=== PATIENT | female | born 1945 | race Caucasian/White ===

== ENCOUNTER 2016-12-25 23:03 | Inpatient (IN) | payer MEDICARE ==
[2016-12-25] MEDS ORDERED: HEPARIN SODIUM,PORCINE/D5W PMX 25,000 UNIT in DEXTROSE/WATER 1 500ML.BAG IV SCH (23:45)
[2016-12-25] MEDS ORDERED: NITROGLYCERIN SL TABS 0.4 MG TAB SUBLINGUAL PRN (23:51)
[2016-12-25 23:53] LABS: Basophils # (A) 0.1 k/uL (0-0.2); Basophils % (A) 1 %; CHCM 34.5; Eosinophils % (A) 1 %; HCT 37.6 % (34.0-46.0); HDW 2.19; HGB 12.7 gm/dL (11.4-16.0); Luc # (Auto) 0.18; Luc % (Auto) 3; Lymphocytes # (A) 1.3 k/uL (1.0-4.8); Lymphocytes % (A) 21 %; MCH 30.3 pg (25.0-35.0); MCHC 33.7 g/dL (31.0-37.0); Mean Platelet Volume 7.3; Monocytes # (A) 0.5 k/uL (0-1.0); Monocytes % (A) 8 %; Neutrophils # (A) 4.1 k/uL (1.3-7.7); Neutrophils % (A) 66 %; RBC 4.18 m/uL (3.80-5.40); RDW 13.5 % (11.5-15.5); WBC 6.1 k/uL (3.8-10.6); WBC (Perox) 6.27
--- NOTE | 2016-12-26 00:03 | ED ---
Chest Pain HPI - General Chief Complaint: Chest Pain Stated Complaint: Cath-Trans from [facility] Time Seen by Provider: 12/25/16 23:05 Source: patient, EMS Mode of arrival: EMS Limitations: no limitations - History of Present Illness Initial Comments: This patient is a 70-year-old woman transferred here from [facility] to be admitted and have cardiology consultation. The patient had gone there for an episode of chest pain. She states that the symptoms came on around 6:30 after she had eaten. She states she was not exerting herself at this time. She indicates the pain was substernal, heavy feeling, moderate intensity. She states that she felt somewhat weak and just unwell. The symptoms resolved just prior to her arriving at the other hospital. She states she has not had any recurrence of symptoms and feels okay now. The patient denies diaphoresis, dyspnea, nausea and vomiting, palpitations, lightheadedness or syncope. He does give history of patent ductus appear in 1968. MD Complaint: chest pain Onset/Timin -: hour(s) Onset: during rest Pain Location: substernal Pain Radiation: none Severity: moderate Quality: heaviness Consistency: now resolved Improves With: nothing Worsens With: nothing Anginal Symptoms: diaphoresis Treatments Prior to Arrival: none - Related Data Home Medications Medication Instructions Recorded Confirmed Brimonidine Tartrate [Alphagan P 1 drop BOTH EYES BID 12/25/16 12/25/16 0.2% Oph Soln] Cholecalciferol [Vitamin D3] 1,000 unit PO DAILY 12/25/16 12/25/16 Latanoprost [Xalatan 0.005%] 1 drop BOTH EYES HS 12/25/16 12/25/16 Lisinopril [Zestril] 10 mg PO DAILY 12/25/16 12/25/16 Allergies Allergy/AdvReac Type Severity Reaction Status Date / Time Sulfa (Sulfonamide Allergy Rash/Hives Verified 12/25/16 23:26 Antibiotics) Penicillins AdvReac Nausea & Verified 12/25/16 23:26 Vomiting Review of Systems ROS Statement: Those systems with pertinent positive or pertinent negative responses have been documented in the HPI. ROS Other: All systems not noted in ROS Statement are negative. Constitutional: Denies: fever, chills, weakness ENT: Denies: throat pain Respiratory: Denies: cough, dyspnea, hemoptysis Cardiovascular: Reports: as per HPI, chest pain. Denies: palpitations, dyspnea on exertion, orthopnea, edema, syncope Gastrointestinal: Denies: abdominal pain, vomiting Genitourinary: Denies: dysuria, hematuria Musculoskeletal: Denies: back pain Skin: Denies: rash Neurological: Denies: headache, weakness, numbness EKG Findings - EKG Results: EKG: interpreted by ERMD, sinus rhythm (Rate approximately 83 bpm), normal axis , normal QRS - ND, Pacemaker, Normal: Myocardial infarction: inferior ND (old age indeterminate) Past Medical History Past Medical History: Hypertension History of Any Multi-Drug Resistant Organisms: None Reported Additional Past Surgical History / Comment(s): appanductious 67 Past Psychological History: Anxiety, Depression Smoking Status: Never smoker Past Alcohol Use History: Occasional Past Drug Use History: None Reported General Exam Limitations: no limitations General appearance: alert, in no apparent distress Head exam: Present: atraumatic, normocephalic Eye exam: Present: normal appearance ENT exam: Present: normal oropharynx, mucous membranes moist Neck exam: Present: normal inspection Respiratory exam: Present: normal lung sounds bilaterally. Absent: respiratory distress, wheezes, rales, rhonchi, stridor Cardiovascular Exam: Present: regular rate, normal rhythm, systolic murmur ( Grade 1/6 systolic ejection murmur). Absent: diastolic murmur, rubs, gallop GI/Abdominal exam: Present: soft. Absent: distended, tenderness, guarding, rebound Extremities exam: Present: normal inspection, normal capillary refill. Absent: pedal edema, calf tenderness Back exam: Present: normal inspection. Absent: CVA tenderness (R), CVA tenderness (L) Neurological exam: Present: alert Skin exam: Present: warm, dry, intact, normal color. Absent: rash Course Vital Signs 12/25/16 23:13 Temperature 98.8 F Pulse Rate 90 Respiratory 16 Rate Blood Pressure 160/72 O2 Sat by Pulse 97 Oximetry Chest Pain [facility] Patient is a 70-year-old woman transferred from [facility], for an episode of chest pain. She has been symptom-free since her to arriving at the other hospital. She arrives on a heparin drip. Patient be admitted under the hospitalist and have cardiology consultation. I did discuss the case with Dr. Davila. Disposition Clinical Impression: Chest pain Disposition: ADMITTED IP TO THIS HOSP Condition: Good
[2016-12-26 00:04] LABS: ALT 151 U/L (9-52); AST 278 U/L (14-36); Alkaline Phosphatase 140 U/L (38-126); Amylase 74 U/L (30-110); Anion Gap 10 mmol/L; Blood Urea Nitrogen 19 mg/dL (7-17); Calcium 9.5 mg/dL (8.4-10.2); Carbon Dioxide 24 mmol/L (22-30); Chloride 103 mmol/L (98-107); Glucose 110 mg/dL (74-99); Magnesium 2.1 mg/dL (1.6-2.3); Non-African American GFR(MDRD) >60 (>60 ml/min/1.73 sqM); Potassium 4.4 mmol/L (3.5-5.1); Sodium 137 mmol/L (137-145); Total Bilirubin 0.7 mg/dL (0.2-1.3); Total Protein 7.1 g/dL (6.3-8.2)
[2016-12-26 00:13] LABS: Creatine Kinase MB 0.6 ng/mL (0.0-2.4)
[2016-12-26 00:24] LABS: Troponin I 0.052 ng/mL (0.000-0.034)
[2016-12-26 02:00] VITALS: BMI 23.9
[2016-12-26 06:23] LABS: Creatine Kinase MB 0.8 ng/mL (0.0-2.4)
[2016-12-26 06:27] LABS: Troponin I 0.052 ng/mL (0.000-0.034)
[2016-12-26 06:39] LABS: Cholesterol 275 mg/dL (<200); HDL Cholesterol 105 mg/dL (40-60); Triglycerides 57 mg/dL (<150)
[2016-12-26] MEDS: BRIMONIDINE TARTRATE 0.2% DROPS 5 ML BTL BOTH EYES SCH ×2 (08:14→19:53)
--- NOTE | 2016-12-26 08:15 | P.CRDCN ---
History of Present Illness Consult date: 12/26/16 Chief complaint: Chest pain History of present illness: This is a pleasant 71-year-old female patient with a past medical history significant for hypertension as well as history of surgical repair of PDA presented initially to [facility] and then she was transferred to [facility]. The patient was in her usual state of health until yesterday when she went to eat dinner with her and once she was back at home she started experiencing discomfort across the chest associated with dizziness and lightheadedness. The EKG showed sinus rhythm with non-specific changes in the inferior leads. The cardiac enzymes were checked and came in to be abnormal. The patient was ruled in for acute coronary event. I recommended proceeding with heart catheterization. I am concerned about severity underlying CAD. Past Medical History Past Medical History: Hypertension History of Any Multi-Drug Resistant Organisms: None Reported Past Surgical History: Tonsillectomy Additional Past Surgical History / Comment(s): appanductious 67 Past Anesthesia/Blood Transfusion Reactions: No Reported Reaction Past Psychological History: Anxiety, Depression Smoking Status: Former smoker Past Alcohol Use History: Occasional Past Drug Use History: None Reported Medications and Allergies Home Medications Medication Instructions Recorded Confirmed Type Brimonidine Tartrate [Alphagan P 1 drop BOTH EYES BID 12/25/16 12/25/16 History 0.2% Ophth Soln] Cholecalciferol [Vitamin D3] 1,000 unit PO DAILY 12/25/16 12/25/16 History Latanoprost [Xalatan 0.005%] 1 drop BOTH EYES HS 12/25/16 12/25/16 History Lisinopril [Zestril] 10 mg PO DAILY 12/25/16 12/25/16 History Allergies Allergy/AdvReac Type Severity Reaction Status Date / Time Sulfa (Sulfonamide Allergy Rash/Hives Verified 12/25/16 23:26 Antibiotics) Penicillins AdvReac Nausea & Verified 12/25/16 23:26 Vomiting Physical Exam Vitals: Vital Signs Temp Pulse Pulse Resp BP BP Pulse Ox 12/26/16 07:34 97.2 F L 73 16 121/63 95 12/26/16 04:00 16 12/26/16 03:53 98.6 F 74 16 119/57 95 12/26/16 02:00 18 12/26/16 01:45 98.7 F 79 18 142/66 96 12/26/16 01:08 84 16 136/84 97 Intake and Output 12/25/16 12/26/16 12/26/16 22:59 06:59 14:59 Other: Voiding Method Toilet Weight 61.235 kg - Constitutional General appearance: no acute distress - Respiratory Respiratory: bilateral: CTA - Cardiovascular Rhythm: regular Heart sounds: normal: S1, S2 Results 12/25/16 23:26 12/25/16 23:26 Cardiac Enzymes 12/26/16 Range/Units 05:31 CK-MB (CK-2) 0.8 (0.0-2.4) ng/mL Troponin I 0.052 H* (0.000-0.034) ng/mL Coagulation 12/26/16 Range/Units 06:43 APTT 51.7 H (22.0-30.0) sec Lipids 12/26/16 Range/Units 05:31 Triglycerides 57 (<150) mg/dL Cholesterol 275 H (<200) mg/dL HDL Cholesterol 105 H (40-60) mg/dL Current Medications Generic Name Dose Route Start Last Admin Trade Name Freq PRN Reason Stop Dose Admin Aspirin 325 mg 12/26/16 09:00 Aspirin PO DAILY [facility] Brimonidine Tartrate 1 drops 12/26/16 09:00 Alphagan P 0.2% Ophth Soln BOTH EYES BID [facility] Cholecalciferol 1,000 unit 12/26/16 09:00 Vitamin D3 PO DAILY [facility] Heparin Sodium/Dextrose 25,000 500 mls @ 14.69 mls/hr 12/25/16 23:45 01:08 unit/ IV Solution IV 12 units/kg/hr .Q24H KEYONNA 14.7 mls/hr Protocol Administration 12 UNITS/KG/HR Latanoprost 1 drops 12/26/16 21:00 Xalatan 0.005% BOTH EYES HS [facility] Lisinopril 10 mg 12/26/16 09:00 Zestril PO DAILY [facility] Nitroglycerin 0.4 mg 12/25/16 23:51 Nitrostat SUBLINGUAL Q5M PRN Chest Pain Intake and Output 12/25/16 12/26/16 12/26/16 22:59 06:59 14:59 Other: Voiding Method Toilet Weight 61.235 kg Assessment and Plan Plan: Assessment Acute non-STEMI Hypertension Plan Proceed with heart catheterization Follow-up with the patient
[2016-12-26] MEDS ORDERED: ALPRAZolam 0.25 MG TAB PO PRN (08:17)
[2016-12-26] MEDS ORDERED: SODIUM CHLORIDE 0.9% 1,000 ML in EMPTY BAG 1 BAG IV ONE (08:17)
[2016-12-26] MEDS ORDERED: ASPIRIN 325 MG TAB PO STA (08:17)
[2016-12-26] MEDS ORDERED: ALPRAZolam 0.5 MG TAB PO PRN (08:17)
[2016-12-26] MEDS ORDERED: ATORVASTATIN 80 MG TAB PO STA (08:17)
[2016-12-26] MEDS ORDERED: NITROGLYCERIN SL TABS 0.4 MG TAB SUBLINGUAL PRN (08:17)
[2016-12-26] MEDS ORDERED: LISINOPRIL 10 MG TAB PO SCH (09:00)
[2016-12-26] MEDS ORDERED: ASPIRIN 325 MG TAB PO SCH (09:00)
[2016-12-26] MEDS: CHOLECALCIFEROL 1,000 UNIT TAB PO SCH (09:08)
[2016-12-26 12:46] LABS: Creatine Kinase MB 0.8 ng/mL (0.0-2.4); Troponin I 0.025 ng/mL (0.000-0.034)
[2016-12-26] MEDS ORDERED: HEPARIN SODIUM 1,000 UNIT/ML VIAL ONE (15:20)
[2016-12-26] MEDS ORDERED: LIDOCAINE 2% INJ 20 MG/ML (20 ML MDV) ONE (15:20)
[2016-12-26] MEDS ORDERED: MIDAZOLAM 2 MG/2 ML VIAL ONE (15:20)
[2016-12-26] MEDS ORDERED: diphenhydrAMINE 50 MG/ML 1 ML VIAL ONE (15:20)
[2016-12-26] MEDS ORDERED: VERAPAMIL 2.5 MG/ML 2 ML AMP ONE (15:21)
[2016-12-26] MEDS ORDERED: SODIUM CHLORIDE 0.9% 1,000 ML IV ONE (15:29)
[2016-12-26] MEDS ORDERED: diphenhydrAMINE 50 MG/ML 1 ML VIAL IVP ONE (15:39)
[2016-12-26] MEDS ORDERED: MIDAZOLAM 2 MG/2 ML VIAL IV ONE (15:39)
[2016-12-26] MEDS ORDERED: LIDOCAINE 2% INJ 20 MG/ML SQ ONE (15:40)
[2016-12-26] MEDS: VERAPAMIL SYRINGE (5 MG/10 ML) INTRAARTER ONE ×2 (15:43→15:56)
[2016-12-26] MEDS ORDERED: IOHEXOL 350 MG/ML 125ML BOTTLE INJ ONE (15:56)
[2016-12-26] MEDS ORDERED: RX INFO: IV CONTRAST WAS GIVEN 1 EACH MISC MISCELLANE PRN (16:08)
[2016-12-26] MEDS ORDERED: SODIUM CHLORIDE 0.9% 1,000 ML IV SCH (16:15)
[2016-12-26] MEDS: PANTOPRAZOLE 40 MG/10 ML VIAL IVP SCH (17:21)
--- NOTE | 2016-12-26 18:19 | HP ---
DATE OF ADMISSION: Patient is a very pleasant 71-year-old female who was transferred from [facility], where she presented with chest pain after eating dinner with her . It appeared like she had some gas and also sharp in nature, non-radiating across the chest area ( ) dizziness and lightheadedness. Denied any shortness of breath. Patient had negative troponins in [facility]. Here patient has minimally elevated troponins of 0.052, which remained stable, and then they started coming down again. Patient had some nonspecific ST-T wave changes in the inferior leads, because of which Cardiology evaluated the patient and is taking her for cardiac catheterization. Patient does have significant alcohol abuse history. Patient apparently drinks beers every day and patient does have alcoholic hepatitis with elevated liver enzymes, AST and ALT ratio consistent with alcoholic hepatitis. Patient although denies any previous alcohol withdrawal symptoms ( ) does not believe patient will have withdrawals, but will watch for withdrawals here. REVIEW OF SYSTEMS: CONSTITUTIONAL: No fever, no malaise, no fatigue. HEENT: No recent visual problems or hearing problems. Denied any sore throat. CARDIOVASCULAR: As described in HPI. PULMONARY: No shortness of breath, no cough, no hemoptysis. GASTROINTESTINAL: As described in HPI. NEUROLOGICAL: No headaches, no weakness, no numbness. HEMATOLOGICAL: Denies any bleeding or petechiae. GENITOURINARY: Denies any burning micturition, frequency, or urgency. MUSCULOSKELETAL/RHEUMATOLOGICAL: Denies any joint pain, swelling, or any muscle pain. ENDOCRINE: Denies any polyuria or polydipsia. The rest of the 14 point review of systems is negative. Past medical history is significant for: 1. Hypertension. 2. Anxiety. 3. Depression. SOCIAL HISTORY: Former smoker. Alcohol abuse history, as mentioned above. Denied any drug abuse. Home medications include: 1. Brimonidine. 2. Cholecalciferol. 3. Latanoprost. 4. Lisinopril. ALLERGIES: SULFA DRUGS and PENICILLINS. PHYSICAL EXAMINATION: VITAL SIGNS: Temperature 98.0, pulse of 85, respiratory rate of 16, blood pressure 162/70. Saturating at 96% on room air. GENERAL: The patient is alert and oriented x3, not in any acute distress. Well developed, well nourished. HEENT: Pupils are round and equally reacting to light. EOMI. No scleral icterus. No conjunctival pallor. Normocephalic, atraumatic. No pharyngeal erythema. No thyromegaly. CARDIOVASCULAR: S1 and S2 present. No murmurs, rubs, or gallops. PULMONARY: Chest is clear to auscultation, no wheezing or crackles. ABDOMEN: Soft, nontender, nondistended, normoactive bowel sounds. No palpable organomegaly. MUSCULOSKELETAL: No joint swelling or deformity. EXTREMITIES: No cyanosis, clubbing, or pedal edema. NEUROLOGICAL: Gross neurological examination did not reveal any focal deficits. SKIN: No rashes. LABORATORY DATA: CBC, CMP are abnormal for elevated AST and ALT of 278 and 151. EKG was reviewed. I do not have any chest x-ray, which was ordered by me. ASSESSMENT AND PLAN: 1. Chest pain. Will rule out acute coronary artery syndromes and unstable angina. Patient is on IV heparin at this point of time. For cardiac catheterization because of above-mentioned reasons, although my suspicion is high for alcoholic gastritis and alcoholic hepatitis. 2. Possible alcoholic gastritis. Patient will be started on Protonix 40 daily IV. Patient is at this point of time going for cardiac catheterization. 3. Alcoholic hepatitis. Counseling was provided. Patient will benefit from IV fluids, which will be continued. If cardiac catheterization does not show any significant coronary occlusion, her symptoms are probably related to alcoholic gastritis. Counseling regarding alcohol hepatitis was provided. 4. Hyperlipidemia. As of now will not start her on any statin because of elevated liver enzymes. Continue with IV heparin. Proceed with cardiac catheterization today.
[2016-12-26] MEDS: METOPROLOL TARTRATE 12.5 MG TAB PO SCH ×2 (19:53→20:00)
--- NOTE | 2016-12-26 20:46 | XR ---
EXAMINATION TYPE: XR chest 2V DATE OF EXAM: 12/26/2016 8:09 PM COMPARISON: Outside chest x-ray from yesterday. HISTORY: Chest pain rule out CHF TECHNIQUE: Frontal and lateral views of the chest are obtained. FINDINGS: There is chronic parenchymal change without suspicious focal air space opacity, pleural ef fusion, or pneumothorax seen. The cardiac silhouette size is upper limits of normal with atheroscler otic and ectatic thoracic aorta. The osseous structures are intact. IMPRESSION: Chronic changes without acute cardiopulmonary process.
[2016-12-26] MEDS ORDERED: LATANOPROST 0.005% OPHTH DROPS 2.5 ML BTL BOTH EYES SCH (21:00)
--- NOTE | 2016-12-26 22:15 | CC ---
DATE OF SERVICE: December 26, 2016. Performing physician: Ulisses Davila M.D., vehicle calibration engineer. PROCEDURE PERFORMED: 1. Selective right and left coronary angiogram. 2. Left heart catheterization. 3. Left ventriculography. INDICATION: This is a pleasant 71-year-old female patient with hypertension and dyslipidemia, who presented to the hospital with chest discomfort and ruled in for acute non-ST elevation myocardial infarction. The decision was made toward heart catheterization. Approach: Right radial artery. COMPLICATIONS: None. Level of sedation: Moderate. PROCEDURE DESCRIPTION: After obtaining informed consent, the patient was brought to the cardiac yard laborer. Right radial artery was cannulated using micropuncture technique. The micropuncture wire passed easily, then I placed a 6 Welsh sheath in the right radial artery. Subsequently, I gave the patient 3000 units of heparin IV. After that, I did selective right and left coronary angiogram using JR4 and JL 3.5 catheters. I did after that left heart catheterization and LV gram using a 6 Welsh pigtail catheter. The procedure was completed without any complication. SELECTIVE CORONARY ANGIOGRAM: 1. The right coronary artery is a large-caliber vessel and it is a dominant vessel. The proximal RCA is angiographically normal. The mid RCA has eccentric lesion that seems to be calcified and seems to be in the range of 50% to 60%. The RCA distally is tortuous, but angiographically normal. The RCA bifurcates into PDA and PLV branches and both are angiographically normal. 2. The left main is a large-caliber vessel. It bifurcates into the left circumflex and left anterior descending artery. 3. Left circumflex is a moderate-caliber vessel and it is a nondominant vessel. The left circumflex is angiographically normal. 4. Left anterior descending artery. The proximal LAD is angiographically normal. The mid LAD is normal and gives rises into the first and second diagonal branches; both are angiographically normal. The LAD distally becomes tortuous, but angiographically normal. HEMODYNAMICS: The left ventricular end-diastolic pressure was 12 mmHg and no gradient was identified across the aortic valve. Left ventricle was performed in the MARINA projection and using a power injection. The left ventricular systolic function is normal with EF between 60 to 65 with evidence of concentric LVH. CONCLUSION: 1. 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 2. Normal left ventricular systolic function. 3. There is no evidence of any wall motion abnormalities noted. 4. Concentric left ventricular hypertrophy was seen. POSTPROCEDURE MANAGEMENT: 1. Medical treatment. 2. Follow up with the patient.
[2016-12-27] MEDS ORDERED: ACETAMINOPHEN TAB 325 MG TAB PO PRN (00:11)
[2016-12-27 08:02] VITALS: RESP 16
[2016-12-27 08:15] LABS: ALT 78 U/L (9-52); AST 58 U/L (14-36); Alkaline Phosphatase 92 U/L (38-126); Anion Gap 7 mmol/L; Blood Urea Nitrogen 12 mg/dL (7-17); Calcium 9.3 mg/dL (8.4-10.2); Carbon Dioxide 26 mmol/L (22-30); Chloride 106 mmol/L (98-107); Glucose 84 mg/dL (74-99); Non-African American GFR(MDRD) >60 (>60 ml/min/1.73 sqM); Potassium 4.4 mmol/L (3.5-5.1); Sodium 139 mmol/L (137-145); Total Bilirubin 0.7 mg/dL (0.2-1.3); Total Protein 6.3 g/dL (6.3-8.2)
[2016-12-27] MEDS: BRIMONIDINE TARTRATE 0.2% DROPS 5 ML BTL BOTH EYES SCH (08:19)
--- NOTE | 2016-12-27 08:19 | P.PN ---
Subjective Principal diagnosis: Non-STEMI This is a pleasant 71-year-old female patient with hypertension and dyslipidemia presented to the hospital was a chest discomfort and ruled in for acute non-STEMI. She underwent a heart catheterization and was found to have intermediate disease involving the mid RCA. The LV gram showed preserved left ventricular systolic function without any evidence of wall motion abnormalities consistent with ischemia. I'll follow-up with her today, she is doing good and she is asymptomatic. The right radial site seems to be soft, nontender with good pulse. I recommended keeping the patient in the hospital for additional 24 hours. She is on aspirin. I am adding Plavix to the current medical treatment. Beside that she is on statin and beta kishan and we will continue that. Objective - Vital Signs Vital signs: Vital Signs Temp 97.3 F L 12/27/16 08:00 Pulse 75 12/27/16 08:00 Resp 16 12/27/16 08:00 BP 128/62 12/27/16 08:00 Pulse Ox 97 12/27/16 08:00 Intake & Output 12/26/16 12/27/16 12/27/16 18:59 06:59 18:59 Other: # Voids 1 1 - Constitutional General appearance: Present: no acute distress - Cardiovascular Rhythm: regular Heart sounds: normal: S1, S2 - Labs CBC & Chem 7: 12/25/16 23:26 12/25/16 23:26 Assessment and Plan Plan: Assessment Acute non-STEMI Hypertension Dyslipidemia Plan Continue the current medical treatment Add Plavix to the current medical treatment Follow-up with the patient
[2016-12-27] MEDS: PANTOPRAZOLE 40 MG/10 ML VIAL IVP SCH (08:20)
[2016-12-27] MEDS: METOPROLOL TARTRATE 12.5 MG TAB PO SCH (08:20)
[2016-12-27] MEDS: CHOLECALCIFEROL 1,000 UNIT TAB PO SCH (08:20)
[2016-12-27 08:39] LABS: Hepatitis B Surface Ag Index 0.08
[2016-12-27 08:45] LABS: Hepatitis B Core IgM Index 0.03
[2016-12-27 08:57] LABS: Hepatitis C Virus IgG Index 0.01
[2016-12-27 08:59] LABS: Hepatitis C Virus IgG Ab Negative (Negative)
[2016-12-27] MEDS ORDERED: ATORVASTATIN 10 MG TAB PO SCH (09:00)
[2016-12-27] MEDS ORDERED: ASPIRIN 325 MG TAB PO SCH (09:00)
[2016-12-27] MEDS ORDERED: ASPIRIN 81 MG CHEW PO SCH (09:00)
[2016-12-27] MEDS ORDERED: CLOPIDOGREL 75 MG TAB PO SCH (09:00)
[2016-12-27 12:01] VITALS: BP 110/63; PULSE 70; TEMP 98
--- NOTE | 2016-12-27 15:19 | DS ---
DATE OF ADMISSION: 12/26/2016 DATE OF DISCHARGE: Patient was transferred from [facility] for cardiology evaluation. There was suspicion of [id number] myocardial infarction. Patient underwent cardiac catheterization, showed some intermitted disease for which patient will need statins, although patient used a couple statins in the past. Not willing to use statins. After discussion with the patient, patient is willing to try statin and if she ends up having muscle aches, the patient wanted to stop it. Her liver enzymes have come down now. I believe she can use statins but patient has alcoholic hepatitis, which improved. Extensive counseling regarding alcohol use was provided. Patient will be discharged on aspirin and Plavix as recommended by Cardiology. I am believe mostly her symptoms are related to alcoholic gastritis. Patient was seen and examined on the day of discharge. Vitals are stable. PHYSICAL EXAMINATION: GENERAL: The patient is alert and oriented x3, not in any acute distress. Well developed, well nourished. HEENT: Pupils are round and equally reacting to light. EOMI. No scleral icterus. No conjunctival pallor. Normocephalic, atraumatic. No pharyngeal erythema. No thyromegaly. CARDIOVASCULAR: S1 and S2 present. No murmurs, rubs, or gallops. PULMONARY: Chest is clear to auscultation, no wheezing or crackles. ABDOMEN: Soft, nontender, nondistended, normoactive bowel sounds. No palpable organomegaly. MUSCULOSKELETAL: No joint swelling or deformity. EXTREMITIES: No cyanosis, clubbing, or pedal edema. NEUROLOGICAL: Gross neurological examination did not reveal any focal deficits. SKIN: No rashes. FINAL DIAGNOSES: 1. Chest pain mostly related to alcoholic gastritis. 2. Intermediate disease on cardiac catheterization, although my suspicion is low that patient has [id number] myocardial infarction. 3. Alcoholic hepatitis, which improved. 4. Hyperlipidemia. 5. Alcohol abuse history. Counseling was provided. Please refer to my depart summary for the rest of the discharge medications. Patient will follow up with Dr. Davila in one week; Dr. Jose Curiel in 3 to 7 days. Activity as tolerated. Cardiac diet. I spent greater than 35 minutes in total discharge process.
[2016-12-27] MEDS ORDERED: ATORVASTATIN 40 MG TAB PO SCH (21:00)
== END 2016-12-27 15:53 | disposition home or self-care (01) | DRG 392 ==
LOC: EC 23:03 → 3SUR 23:52 → OBSVTOIN 12-26 16:21
PROVIDERS: ADMIT Hospitalist; ATTEND Hospitalist
PROC: 4A023N7 Measurement of Cardiac Sampling and Pressure, Left Heart, Percutaneous Approach (ICD-10-PCS; principal; 2016-12-26 13:30)
PROC: B2111ZZ Fluoroscopy of Multiple Coronary Arteries using Low Osmolar Contrast (ICD-10-PCS; principal; 2016-12-26 13:30)
DX: K29.20 Alcoholic gastritis without bleeding (principal); I11.9 Hypertensive heart disease without heart failure; K70.10 Alcoholic hepatitis without ascites; E78.5 Hyperlipidemia, unspecified; F10.10 Alcohol abuse, uncomplicated; I51.7 Cardiomegaly; Z79.82 Long term (current) use of aspirin; Z79.899 Other long term (current) drug therapy; Z87.891 Personal history of nicotine dependence; Z88.0 Allergy status to penicillin; Z88.2 Allergy status to sulfonamides; I25.10 Atherosclerotic heart disease of native coronary artery without angina pectoris
CPT/HCPCS: 36415; 71020; 80053; 80061; 80074; 82150; 82550; 82553; 83690; 83735; 83880; 84484; 85025; 85379; 85730; 93005; 93458; 99285

== ENCOUNTER → 2017-01-29 | Outpatient (CLI) | payer MEDICARE ==
--- NOTE | 2017-02-01 07:16 | MM ---
Reason for exam: screening (asymptomatic). Last mammogram was performed 2 years and 9 months ago. History: Patient is postmenopausal. Family history of breast cancer in daughter at age 44. Took estrogen for 11 years. Took progesterone for 11 years. Physical Findings: A clinical breast exam by your physician is recommended on an annual basis and results should be correlated with mammographic findings. MG 3D Screening Mammo W/Cad Bilateral CC and MLO view(s) were taken. Prior study comparison: May 15, 2014, bilateral MG screening mammo w CAD. March 17, 2011, bilateral digital screening mammo w/CAD. There are scattered fibroglandular densities. There is chronic nodularity in the left breast. No significant changes when compared with prior studies. ASSESSMENT: Benign, BI-RAD 2 RECOMMENDATION: Routine screening mammogram of both breasts in 1 year.
== END | disposition home or self-care (01) ==
LOC: RADMAMWWP 10:03
PROVIDERS: ATTEND Internal Medicine
DX: Z12.31 Encounter for screening mammogram for malignant neoplasm of breast (principal)
CPT/HCPCS: 77063; G0202

== ENCOUNTER → 2020-11-06 | Outpatient (CLI) | payer MEDICARE ==
--- NOTE | 2020-11-07 13:50 | MM ---
Reason for exam: screening (asymptomatic). Last mammogram was performed 3 years and 9 months ago. History: Patient is postmenopausal. Family history of breast cancer in daughter at age 44. Took estrogen for 11 years. Took progesterone for 11 years. Physical Findings: A clinical breast exam by your physician is recommended on an annual basis and results should be correlated with mammographic findings. MG 3D Screening Mammo W/Cad Bilateral CC and MLO view(s) were taken. Prior study comparison: January 29, 2017, bilateral MG 3d screening mammo w/cad. May 15, 2014, bilateral MG screening mammo w CAD. There are scattered fibroglandular densities. Benign appearing bilateral calcifications. No significant changes when compared with prior studies. ASSESSMENT: Benign, BI-RAD 2 RECOMMENDATION: Routine screening mammogram of both breasts in 1 year.
== END | disposition home or self-care (01) ==
LOC: RADMAMWWP 11:16
PROVIDERS: ATTEND Internal Medicine
DX: Z12.31 Encounter for screening mammogram for malignant neoplasm of breast (principal)
CPT/HCPCS: 77063; 77067